=== PATIENT | male | born 1990 | race Caucasian/White ===

== ENCOUNTER 2017-03-21 11:00 | Emergency (ER) | payer SELFPAY ==
--- NOTE | 2017-03-21 11:24 | Emergency Department Record ---
History of Present Illness - General Chief Complaint: Headache Migraine Stated Complaint: HEADACHE Time Seen by Provider: 03/21/17 11:20 Source: Patient Mode of Arrival: Ambulatory Limitations: No limitations - History of Present Illness Initial Comments: The patient is here due to having a migraine LARA for the last half hour. The pain is sharp and stabbing and severe over the L frontal area with a sudden onset. He has a long hx of headaches which he describes as migraines but has never had one this bad in the past. There is no reported neck pain, visual changes, nausea, or vomiting but he does have photophobia. The patient was very anxious at presentation to the ER and did have some SOB but that has resolved now. MD Complaint: Headache, "Migraine" Onset/Timin -: Minutes(s) Onset Description: Sudden Location: Frontal Severity scale (1-10): 10 Quality: Aching Consistency: Constant Improves With: Nothing Treatments Prior to Arrival: None - Related Data Previous Rx's Medication Instructions Recorded Naproxen [Naprosyn] 500 mg PO BID #14 tablet. 03/21/17 Allergies Allergy/AdvReac Type Severity Reaction Status Date / Time tramadol AdvReac HEADACHE Verified 05/22/15 06:37 Travel Screening - Travel/Exposure Within Last 30 Days Have you traveled within the last 30 days?: No - Travel/Exposure Within Last Year Have you traveled outside the [place] in the last year?: No - Additonal Travel Details Have you been exposed to anyone with a communicable illness?: No Review of Systems Constitutional: Denies: Chills, Fever Eyes: Denies: Eye discharge ENT: Denies: Congestion Respiratory: Denies: Cough, Dyspnea Past Medical History - SOCIAL HISTORY Smoking Status: Former smoker Alcohol Use: None Drug Use: None - RESPIRATORY Hx Respiratory Disorders: No - CARDIOVASCULAR Hx Cardio Disorders: No - NEURO Hx Neuro Disorders: Yes Hx Headaches: Yes Hx Neuropathy: Yes Comment:: left arm nerve pain - GI Hx GI Disorders: Yes Hx Abdominal Pain: Yes Hx Nausea/Vomiting: Yes Hx Obstructive Bowel: Yes - Hx Genitourinary Disorders: No - ENDOCRINE Hx Endocrine Disorders: No - MUSCULOSKELETAL Hx Musculoskeletal Disorders: No - PSYCH Hx Psych Problems: No - HEMATOLOGY/ONCOLOGY Hx Hematology/Oncology Disorders: No Family Medical History Any Significant Family History?: No Family Hx Comment (NOT TO BE USED IN PLACE OF ITEMS BELOW): denies Physical Exam - General General Appearance: Alert, Oriented x3, Cooperative, Mild distress (due to the pain) - Head Head exam: Atraumatic, Normocephalic, Normal inspection - Eye Eye exam: Normal appearance, PERRL - ENT ENT exam: Normal exam, Mucous membranes moist, Normal external ear exam, Normal orophraynx, TM's normal bilaterally Throat exam: Normal inspection. negative: Tonsillar erythema, Tonsillar exudate - Neck Neck exam: Normal inspection, Full ROM. negative: Meningismus (The neck is very supple.), Tenderness - Respiratory Respiratory exam: Normal lung sounds bilaterally. negative: Respiratory distress - Cardiovascular Cardiovascular Exam: Regular rate, Normal rhythm, Normal heart sounds - GI/Abdominal GI/Abdominal exam: Soft, Normal bowel sounds. negative: Tenderness - Extremities Extremities exam: Normal inspection, Full ROM, Normal capillary refill. negative: Tenderness - Back Back exam: Reports: Normal inspection - Neurological Neurological exam: Alert, Normal gait, Oriented X3, Other (There is a neg Kernigs and Brudzinski's reflexes.). negative: Abnormal gait, Altered, Motor sensory deficit - Psychiatric Psychiatric exam: Anxious Course Vital Signs 03/21/17 11:01 Temperature 98.1 F Pulse Rate 105 H Respiratory 24 Rate Blood Pressure 145/89 Pulse Ox 100 - Reevaluation(s) Reevaluation #1: The patient is doing better at this time. He is resting more comfortably. 03/21/17 12:43 Reevaluation #2: The patient is doing much better at this time. His LARA is 100% resolved. He is up walking and feels much better. I explained to him that I would like to do an LP for the 1/100 chance he could be having a leaking aneurysm even though his head CT is normal. The patient understands why we would be doing the CT but is refusing. I did explain to him that by not catching the aneurysm early he could have the return of the LARA, have a stroke, be disabled and even . The patient understands and accepts the risks. 03/21/17 13:45 Reevaluation #3: The patient is doing much better at this time. His LARA is still 100% resolved. He is up walking and feels MUCH better and is ready for home. On recheck his temp is 99.0 and he denies any new pains or problems. 03/21/17 14:01 Medical Decision Making - Data Complexity MDM Data: Labs Ordered and/or Reviewed, X-Ray Ordered and/or Reviewed - Lab Data Result diagrams: 03/21/17 12:21 03/21/17 12:21 - Radiology Data Radiology results: Report reviewed (Head CT: Neg) Disposition Disposition: Discharge Clinical Impression: Headache Qualifiers: Headache type: unspecified Headache chronicity pattern: acute headache Intractability: not intractable Qualified Code(s): R51 - Headache Disposition: Home, Self-Care Condition: (1) Good Instructions: Acute Headache (ED) Additional Instructions: Please take the Naprosyn for pain and please be off work today. Return to the ER for any increased pain, fever, or vomiting. Prescriptions: Naproxen [Naprosyn] 500 mg PO BID #14 tablet.dr Forms: Patient Portal Access Time of Disposition: 14:04
[2017-03-21] MEDS: DIPHENHYDRAMINE HCL IV 50 MG/ML VIAL IVP ONE (12:24)
[2017-03-21] MEDS: KETOROLAC 30 MG/ML VIAL IVP ONE (12:25)
[2017-03-21] MEDS: METOCLOPRAMIDE HCL 10 MG/2 ML VIAL IV ONE (12:26)
[2017-03-21 12:29] LABS: GRAN % 78.2 % (47-80); HEMATOCRIT 49.1 % (42.0-52.0); HEMOGLOBIN 16.8 gm/dl (14.0-18.0); LYMPH % 21.5 % (16-45); MEAN CORPUSCULAR HEMOGLOBIN 30.1 pg (27-33); MEAN CORPUSCULAR HGB CONC 34.2 g/dl (32-36); MEAN PLATELET VOLUME 10.6 fl (7.4-10.4); MONO % 0.3 % (0-9); PLATELET COUNT 190 K/uL (130-400); RED BLOOD COUNT 5.58 M/uL (4.40-5.70); RED CELL DISTRIBUTION WIDTH 13.6 % (11.5-14.5); WHITE BLOOD COUNT W/O DIFF 3.1 K/uL (4.2-12.2)
[2017-03-21] MEDS: 0.9 % SODIUM CHLORIDE 1,000 ML BAG IV ONE (12:29)
[2017-03-21 12:48] LABS: BLOOD UREA NITROGEN 15 mg/dL (9-20); CREATININE 0.7 mg/dL (0.66-1.25); EST GLOMERULAR FILTRATION RATE > 60 ml/min; GLUCOSE,RANDOM 88 mg/dL (70-110)
--- NOTE | 2017-03-23 07:48 | CT SCAN REPORT ---
EXAM: CT OF THE BRAIN WITHOUT CONTRAST HISTORY: HEADACHE. TECHNIQUE: CT of the brain without contrast was obtained. Comparison: None. FINDINGS: The globes are intact. Minor mucosal thickening of the ethmoid air cells bilaterally. Mucosal thickening and polyp formation of the left sphenoid sinus. There is no displaced or depressed skull fracture. There is no intra or extraaxial hemorrhage. CT is limited for evaluation of acute infarct. No CT evidence for large or territorial acute infarct. No mass, mass effect, or midline shift. IMPRESSION: MINOR MUCOSAL THICKENING OF THE ETHMOID AIR CELLS. POLYP OF THE LEFT SPHENOID SINUS. THE REMAINDER OF THE EXAMINATION IS UNREMARKABLE. JOB NUMBER: [id number] MTDD
== END 2017-03-21 14:18 | disposition home or self-care (01) ==
LOC: ER 11:00
DX: R51 Headache (principal)
CPT/HCPCS: 70450; 80048; 85025; 96374; 96375; 99284; J1200; J1885; J2765; J7030